=== PATIENT | female | born 2000 | race American Indian/Alaskan Native ===

== ENCOUNTER 2021-05-06 09:10 | Inpatient (IN) | payer MEDICAID ==
[2021-05-06] MEDS ORDERED: NALOXONE 0.4 MG/1 ML INJ IV PRN (10:15)
[2021-05-06] MEDS ORDERED: ACETAMINOPHEN 325 MG TAB PO PRN (10:15)
[2021-05-06] MEDS ORDERED: miSOPROStol 200 MCG TAB PR PRN (10:15)
[2021-05-06] MEDS ORDERED: ePHEDrine SULFATE 50 MG/1 ML INJ IV PRN (10:15)
[2021-05-06] MEDS ORDERED: MINERAL OIL 30 ML ORAL LIQD PO PRN (10:15)
[2021-05-06] MEDS ORDERED: LACTATED RINGERS 1,000 ML IV SCH (10:15)
[2021-05-06] MEDS ORDERED: OXYTOCIN 10 UNIT/1 ML INJ IM PRN (10:15)
[2021-05-06] MEDS ORDERED: CARBOPROST TROMETHAMINE 250 MCG/1 ML INJ IM PRN (10:15)
[2021-05-06] MEDS ORDERED: METHYLERGONOVINE MALEATE 0.2 MG/ML VIAL IM PRN (10:15)
[2021-05-06] MEDS ORDERED: BUTORPHANOL 2 MG/1 ML INJ IV PRN ×2 (10:15)
[2021-05-06] MEDS ORDERED: TERBUTALINE 1 MG/1 ML INJ SUB-Q PRN (10:15)
[2021-05-06] MEDS ORDERED: LOPERAMIDE 2 MG CAP PO PRN (10:15)
--- NOTE | 2021-05-06 10:15 | History and Physical Report ---
History of Present Illness Date of examination: 05/06/21 Date of admission: 05/06/21 Chief complaint: contractions History of present illness: Pt presents in active labor progressing from 5cm to complete in about an hour. EDC Confirmation: 05/22/2021 Gestational Age: 17 6/7 weeks Past History : 1 Term Births: 0 Premature Births: 0 Living Children: 0 Para: 0 Mult. Births: 0 Prev : 0 Prev. attempt? 0 Aborta: 0 Elect. Ab: 0 Spont. Ab: 0 Ectopics: 0 Past Medical History: Negative Past Medical History Past Surgical History: Negative Past Surgical History Past Medical History Surgery (Non-home administrator): Negative Past Surgical History Abnormal PAP: negative WHITNEY Exposure: negative Infertility: negative Uterine Anomaly: negative Uterine Surgery (not C/S): negative Other Gynecologic Problems: negative Infection History Hx of STD: none HIV Risk Eval: no Hepatitis B Risk Eval: low risk Personal hx. of genital herpes: no Partner hx. of genital herpes: no Rash, Viral, or Febrile illness since last LMP? no Varicella/Chicken Pox Status: Unknown TB Risk: no Genetic History Congenital Heart Defect: Mom: no Dad: no Haylee Disease: Mom: no Dad: no Thalassemia Mom: no Dad: no Neural Tube Defect Mom: no Dad: no Down's Syndrome Mom: no Dad: no Gera-Sachs Mom: no Dad: no Sickle Cell Disease/Trait Mom: no Dad: no Hemophilia Mom: no Dad: no Muscular Dystrophy Mom: no Dad: no Cystic Fibrosis Mom: no Dad: no [place] Chorea Mom: no Dad: no Mental Retardation Mom: no Dad: no Fragile X Mom: no Dad: no Other Genetic/Chromosomal Disorder Mom: no Dad: no Child w/other defect Mom: no Dad: no Enviromental Exposures Xray Exposure: no Medication, drug, or alcohol use since LMP: no Chemical/Other Exposure: no Exposure to Cat Liter: no Hx of Parvovirus (Fifth Disease): no Occupational Exposure to Children: none Active Medications (reviewed today): PNV () Past History Past Medical History: other (see hpi) Past Surgical History: other (see hpi) 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) Family/Genetic History: other (see hpi) Social history: other (see hpi) - Obstetrical History Expected Date of Delivery: 05/22/21 Actual Gestation: 38 Week(s) 0 Day(s) : 1 Medications and Allergies Allergies Allergy/AdvReac Type Severity Reaction Status Date / Time No Known Allergies Allergy Unverified 05/06/21 09:29 Home Medications Medication Instructions Recorded Confirmed Last Taken Type No Known Home Medications [No 05/06/21 05/06/21 Unknown History Reported Home Medications] Review of Systems All systems: negative - Vital Signs Vital signs: Vital Signs Pulse BP 83 118/81 05/06/21 09:38 05/06/21 09:38 Temp Pulse Resp BP Pulse Ox 97.9 F 83 18 118/81 99 05/06/21 09:45 05/06/21 09:38 05/06/21 09:45 05/06/21 09:38 05/06/21 09:45 - Physical Exam Cardiovascular: Normal S1, Normal S2 Lungs: Positive: Clear to auscultation, Normal air movement Abdomen: Positive: normal appearance, soft. Negative: distention, tenderness, guarding Genitourinary (Female): Positive: normal external genitalia, normal perenium, other (no lesions) - Obstetrical FHR: category 1 Uterine Contraction Pattern: Regular Uterine Tone Measurement Phase: Resting Uterine Contraction Intensity: Moderate Results Result Diagrams: 05/07/21 00:38 All other labs normal. Assessment and Plan - Patient Problems (1) Active labor at term Current Visit: Yes Status: Acute (2) 37 weeks gestation of Current Visit: Yes Status: Acute
[2021-05-06] MEDS ORDERED: ONDANSETRON 4 MG/2 ML INJ ONE (10:57)
[2021-05-06] MEDS ORDERED: OXYTOCIN DRIP 30 UNITS/500 ML BAG IV SCH ×3 (11:00→13:00)
[2021-05-06] MEDS ORDERED: LIDOCAINE (2%) 20 MG/1 ML VIAL 20 ML MDV INFILTRATI ONE ×2 (11:00→13:49)
[2021-05-06] MEDS ORDERED: LACTATED RINGERS 1,000 ML ONE (11:45)
[2021-05-06] MEDS ORDERED: OXYTOCIN DRIP 30,000 MILLIUNITS/500 ML BAG IV ONE (11:53)
--- NOTE | 2021-05-06 12:25 | Procedure Note ---
OB Delivery Note - Delivery Date of Delivery: 05/06/21 Surgeon: ARLETH MI Estimated blood loss: other (150ml) - Vaginal Delivery presentation: vertex Delivery position: OA Intrapartum events: precipitous labor- <3hr Delivery induction: none Delivery monitor: external FHT, external uterine Route of delivery: Delivery placenta: spontaneous Episiotomy: none Delivery laceration: 1st degree (right periurethral) Delivery repair: vicryl (3-0) Delivery comments: Pt presented to triage and progressed from 5cm to complete in a matter of an hours. Ant shoulder and rest of delivered without difficulty. Infant was placed on maternal abdomen. Cord clamped x 2 and cut by FOB. Cord blood was collected. Placenta spontaneously delivered intact. Repair as above. Mother and stable in LDR. - Infant A at 1 minute: 8 at 5 minutes: 9 Gender: Female (weight 6lbs 3oz)
[2021-05-06] MEDS ORDERED: LANOLIN/ZINC/DIMETHICONE (LANSINOH) 7 GM TP PRN (12:26)
[2021-05-06] MEDS ORDERED: diphenhydrAMINE 25 MG CAP PO PRN (12:26)
[2021-05-06] MEDS ORDERED: MAGNESIUM HYDROXIDE (MOM) ORAL LIQD UDC PO PRN (12:26)
[2021-05-06] MEDS ORDERED: ONDANSETRON 4 MG/2 ML INJ IV PRN (12:26)
[2021-05-06] MEDS ORDERED: WITCH HAZEL/ GLYCERIN PAD TP PRN (12:26)
[2021-05-06] MEDS ORDERED: PROMETHAZINE 25 MG TAB PO PRN (12:26)
[2021-05-06] MEDS ORDERED: PROMETHAZINE 25 MG RECT SUPP PR PRN (12:26)
[2021-05-06] MEDS: IBUPROFEN 800 MG TAB PO SCH ×2 (12:56→21:01)
[2021-05-06] MEDS ORDERED: IBUPROFEN 600 MG TAB PO SCH (13:00)
[2021-05-06 13:38] LABS: Hematocrit 37.5 % (30.3-42.9); Hemoglobin 11.9 gm/dl (10.1-14.3); Mean Corpuscular HGB Conc 32 % (30-34); Mean Corpuscular Volume 75 fl (79-97); Platelet Count 169 K/mm3 (140-440); Red Blood Count 4.99 M/mm3 (3.65-5.03); Red Cell Distribution Width 14.2 % (13.2-15.2)
[2021-05-07 01:05] LABS: Hematocrit 34.6 % (30.3-42.9); Hemoglobin 10.9 gm/dl (10.1-14.3)
[2021-05-07] MEDS: IBUPROFEN 800 MG TAB PO SCH ×4 (04:51→17:03)
[2021-05-07] MEDS: PRENATAL VIT27-FE FUMARATE-FOLIC ACID VIT TAB PO SCH (09:11)
--- NOTE | 2021-05-07 09:49 | Progress Note ---
Assessment and Plan Pt reports in NICU; pt does not desire to discharge today and reports concerns for . Pt reports ambulating, voiding, and eating well. VSS, H&H post delivery stable. Pt reports desires for IUD placement in office for PP BC. Precautions reviewed. Plan to discharge tomorrow discussed with pt - Patient Problems (1) (spontaneous vaginal delivery) Current Visit: Yes Status: Acute Plan to address problem: continue pathway Subjective - Subjective Date of service: 05/07/21 Principal diagnosis: PPD#1 Patient reports: appetite normal, voiding normally, pain well controlled, ambulating normally, no dizzy ambulation, no appetite poor, no pain poorly controlled, no nauseated [place]: in NICU Objective - Vital Signs Latest vital signs: Vital Signs Temp Pulse Resp BP BP Pulse Ox Pulse Ox 05/07/21 08:30 98.4 F 74 20 101/61 05/07/21 08:00 98 05/07/21 04:51 18 05/07/21 04:11 98.2 F 74 18 100/54 99 05/07/21 00:19 98.7 F 82 18 105/67 100 05/06/21 22:01 18 05/06/21 21:01 18 05/06/21 20:33 98.6 F 70 18 131/78 100 05/06/21 19:59 100 05/06/21 14:36 98.4 F 21 114/56 99 05/06/21 13:50 81 133/76 05/06/21 13:21 99.2 F 05/06/21 13:15 80 127/68 05/06/21 13:10 90 126/67 05/06/21 13:05 84 118/58 05/06/21 12:55 96 H 114/61 05/06/21 12:45 100 H 116/68 05/06/21 12:30 83 129/66 05/06/21 12:25 103 H 131/73 05/06/21 11:59 77 130/81 05/06/21 11:41 92 H 100 05/06/21 11:36 83 100 05/06/21 11:32 92 H 91 05/06/21 11:31 83 100 05/06/21 11:26 111 H 99 05/06/21 11:21 76 99 05/06/21 11:11 85 100 05/06/21 11:06 74 100 05/06/21 11:04 18 05/06/21 11:01 99 05/06/21 10:50 95 H 100 05/06/21 10:45 88 100 05/06/21 10:40 81 99 05/06/21 10:35 83 100 05/06/21 10:30 80 100 05/06/21 10:25 97 H 100 05/06/21 10:20 84 100 05/06/21 10:15 79 100 Intake and Output 05/06/21 05/07/21 05/07/21 23:59 07:59 15:59 Intake Total 240 120 240 Output Total 400 500 600 Balance -160 -380 -360 Intake: Oral 240 120 240 Output: Urine 400 500 600 Void 400 500 600 Other: Total, Intake Amount 240 120 240 Total, Output Amount 400 500 600 - Exam Breasts: Present: normal Cardiovascular: Present: Regular rate Lungs: Present: Normal air movement Abdomen: Present: normal appearance, soft Vulva: both: normal Uterus: Present: normal, firm Extremities: Present: normal - Labs Labs: Abnormal lab results 05/06/21 Range/Units 11:35 WBC 12.1 H (4.5-11.0) K/mm3 MCV 75 L (79-97) fl MCH 24 L (28-32) pg
[2021-05-08] MEDS: IBUPROFEN 800 MG TAB PO SCH ×3 (00:30→12:15)
--- NOTE | 2021-05-08 05:27 | Discharge Summary ---
Providers - Providers Date of Admission: 05/06/21 12:00 Date of discharge: 05/08/21 (desires d/c) Attending physician: ARLETH MI Primary care physician: ARLETH MI Hospitalization Reason for admission: active labor, IUP at term Delivery: Episiotomy: none Laceration: none Incision: normal Other procedures: none complications: none Discharge diagnosis: IUP at term delivered [place] baby: female Hospital course: uncomplicated vaginal delivery Pt awake caring for NB. Breast feeding well. VSS FF below umb Lochia small Perineum intact. H&H stable No s/sx of anemia Doing well s/p vag delivery P: d/c today with instructions RTO 4 weeks Mirena for PP BC Condition at discharge: Good Disposition: DC- TO HOME OR SELFCARE - Discharge Diagnoses (1) (spontaneous vaginal delivery) Status: Acute Comment: RTO 4 weeks PP Care Plan - Provider Discharge Summary Activity: routine, no sex for 6 weeks, no heavy lifting 4 weeks, no strenuous exercise Diet: routine Instructions: routine Additional instructions: [] Smoking cessation referral if applicable(refer to patient education folder for contact #) [] Refer to [facility] Booklet Call your doctor immediately for: * Fever > 100.5 * Heavy vaginal bleeding ( >1 pad per hour) * Severe persistent headache * Shortness of breath * Reddened, hot, painful area to leg or breast * Drainage or odor from incision. * Keep incision clean and dry at all times and follow doctor's instructions regarding bathing/showering - Follow up plan Follow up: ARLETH MI MD [Primary Care Provider] - 06/07/21 (Congratulations! Please call [phone] to schedule your visit in 4 weeks. Motrin/ibuprofen for pain/cramping. Call with any concerns. ) Forms: Work/School Release Form
[2021-05-08] MEDS: PRENATAL VIT27-FE FUMARATE-FOLIC ACID VIT TAB PO SCH (10:47)
[2021-05-08 15:07] VITALS: BP 113/71
== END 2021-05-08 15:40 | disposition home or self-care (01) | DRG 775 ==
LOC: TRG 09:10 → APU 09:29 → TRG 11:15 → LD 11:47 → TRG 12:00 → LD 12:00 → OB 14:24
PROVIDERS: ADMIT Obstetrics & Gynecology; ATTEND Obstetrics & Gynecology
PROC: 10E0XZZ Delivery of Products of Conception, External Approach (ICD-10-PCS; principal; 2021-05-06)
PROC: 0HQ9XZZ Repair Perineum Skin, External Approach (ICD-10-PCS; 2021-05-06)
DX: O62.3 Precipitate labor (principal); Z3A.37 37 weeks gestation of pregnancy; Z37.0 Single live birth; O70.0 First degree perineal laceration during delivery; Z20.822 Contact with and (suspected) exposure to COVID-19
CPT/HCPCS: 36415; 85014; 85018; 85027; 86592; 86762; 86850; 86900; 86901; 96365; 96366; 99211; G0378; G0463; J0595; J2405; J2590; U0003

== ENCOUNTER 2022-05-20 23:40 | Emergency (ER) | payer MEDICAID ==
--- NOTE | 2022-05-21 01:12 | XRay Report ---
Right ankle 3 views INDICATION: Injury FINDINGS: Talar dome appears intact. Distal tibia and fibula appear normal. Calcaneus appears intact. IMPRESSION: No acute findings are seen. Given patient's pain and MRI may be beneficial for evaluation of soft tis sues, ligaments and tendons. Signer Name: Ronnie Pugh MD Signed: 05/21/2022 1:07 AM Workstation Name: [id number]
--- NOTE | 2022-05-21 06:30 | Emergency Department Report ---
ED Fall HPI - General Chief Complaint: Extremity Injury, Lower Stated Complaint: RT ANKLE INJURY Time Seen by Provider: 05/21/22 05:40 Source: patient Mode of arrival: Ambulatory - History of Present Illness MD Complaint: fall -: Gradual Fall From: standing When Fall Occurred: unsure Fall Witnessed: no Place Fall Occurred: home Loss of Consciousness: none Prolonged Down Time?: no Location: head Location - Extremities: Right: Ankle, Foot - Related Data Previous Rx's Medication Instructions Recorded Last Taken Type Ketorolac [Toradol] 10 mg PO Q6H PRN #10 05/21/22 Unknown Rx Allergies Allergy/AdvReac Type Severity Reaction Status Date / Time No Known Allergies Allergy Unverified 05/06/21 09:29 ED Review of Systems ROS: Stated complaint: RT ANKLE INJURY Other details as noted in HPI ED Past Medical Hx - Past Medical History Hx Hypertension: No Hx Congestive Heart Failure: No Hx Diabetes: No Hx Deep Vein Thrombosis: No Hx Renal Disease: No Hx Sickle Cell Disease: No Hx Seizures: No Hx Asthma: No Hx COPD: No Hx HIV: No - Social History Smoking Status: Never Smoker - Medications Home Medications: Home Medications Medication Instructions Recorded Confirmed Last Taken Type Ketorolac [Toradol] 10 mg PO Q6H PRN #10 05/21/22 Unknown Rx ED Physical Exam - General Limitations: No Limitations Critical care attestation.: If time is entered above; I have spent that time in minutes in the direct care of this critically ill patient, excluding procedure time. ED Disposition Disposition: HOME / SELF CARE / HOMELESS Condition: Stable Instructions: How to Use Cold Therapy, Vdux-[id number]-Beag, Ankle Sprain, Muscle Strain Prescriptions: Ketorolac [Toradol] 10 mg PO Q6H PRN #10 PRN Reason: Pain Referrals: [facility] [Provider Group] - 3-5 Days
[2022-05-21 06:45] VITALS: BP 105/68
== END 2022-05-21 06:40 | disposition home or self-care (01) ==
LOC: ED 23:40
DX: S99.911A Unspecified injury of right ankle, initial encounter (principal); Z53.21 Procedure and treatment not carried out due to patient leaving prior to being seen by health care provider; W19.XXXA Unspecified fall, initial encounter; Y93.89 Activity, other specified; Y92.89 Other specified places as the place of occurrence of the external cause; Y99.8 Other external cause status
CPT/HCPCS: 99283